=== PATIENT | female | born 1995 | race Caucasian/White ===

== ENCOUNTER 2019-03-06 23:10 | Emergency (ER) | payer MEDICAID ==
[~2019-03-06] VITALS: Ht 162.6 cm; Wt 90.9 kg
[2019-03-06 23:14] VITALS: Ht 162.6 cm; Wt 90.9 kg
[2019-03-06] MEDS ORDERED: PRENAVITE1 TAB PO (23:15)
[2019-03-06 23:44] LABS: HEMATOCRIT 34.6 % (36.0-48.0); HEMOGLOBIN 12.2 g/dL (12-16); LYMPHOCYTES 34.3 % (15-50); MCH 30.5 pg (26.0-34.0); MCHC 35.3 g/dL (31.0-37.0); MCV 86.5 fL (80.0-100.0); MEAN PLATELET VOLUME 11.1 fL (7.4-10.4); NEUTROPHILS 59.8 % (40-80); PLATELET COUNT 221 10x3/uL (130-400); RDW 12.8 % (11.5-14.5); WBC 12.9 10x3/uL (4.8-10.8)
[2019-03-06 23:46] LABS: CALC OSMOLALITY 274 mosm/kg (275-300); CALCIUM 9.2 mg/dL (8.5-10.1); CHLORIDE - SERUM 101 mmol/L (98-107); CREATININE - SERUM 0.7 mg/dL (0.6-1.3); GLUCOSE 86 mg/dL (74-106); POTASSIUM - SERUM 3.4 mmol/L (3.5-5.1); SODIUM 139 mmol/L (136-145); UREA NITROGEN 7 mg/dL (7-18); eGFR NON AFRICAN AMERICAN > 90 mL/min (90-120)
[2019-03-06 23:52] LABS: ALBUMIN 3.6 g/dL (3.4-5.0); ALKALINE PHOSPHATASE 53 U/L (46-116); ALT (SGPT) 41 U/L (10-68); BILIRUBIN - TOTAL 0.21 mg/dL (0.2-1.3); PROTEIN - SERUM 7.5 g/dL (6.4-8.2)
[2019-03-06 23:56] LABS: HCG SERUM POSITIVE (NEGATIVE)
[2019-03-06 23:56] LABS: APPEARANCE CLEAR (CLEAR); BILIRUBIN NEGATIVE (NEGATIVE); COLOR YELLOW (YELLOW); GLUCOSE NEGATIVE (NEGATIVE); KETONE NEGATIVE (NEGATIVE); NITRITE NEGATIVE (NEGATIVE); PROTEIN NEGATIVE (NEGATIVE); UROBILINOGEN NORMAL (NORMAL)
[2019-03-06 23:58] LABS: BACTERIA FEW /hpf (NEGATIVE); EPITHELIAL CELLS 0-5 /hpf (0-5); RED CELLS - URINE 0-5 /hpf (0-5); WHITE CELLS - URINE NSEEN /hpf (NEGATIVE)
[2019-03-07 00:25] LABS: HCG - QUANTITATIVE (MATERNAL) 83448 mIU/mL
[2019-03-07 02:51] VITALS: BP 107/70
== END 2019-03-07 02:51 | disposition home or self-care (01) ==
LOC: D.ER 23:10
PROVIDERS: Family Medicine
DX: O20.0 Threatened abortion (principal); Z3A.10 10 weeks gestation of pregnancy

== ENCOUNTER 2019-07-06 09:32 | Outpatient (CLI) | payer MEDICAID ==
[2019-03-06 23:14] VITALS: BMI 34.4
[~2019-07-06 09:32] MED LIST: PRENAVITE1 TAB PO
[2019-07-06 11:31] LABS: BASOPHILS 0.2 % (0-2); EOSINOPHILS 0.8 % (0-7); HEMOGLOBIN 11.6 g/dL (12-16); IMMATURE GRANULOCYTES 0.3 % (0-5); MCH 30.4 pg (26.0-34.0); MCHC 34.1 g/dL (31.0-37.0); MEAN PLATELET VOLUME 11.2 fL (7.4-10.4); MONOCYTES 6.6 % (2-11); NEUTROPHILS 63.1 % (40-80); RBC 3.82 10x6/uL (4.00-5.40); RDW 12.9 % (11.5-14.5); WBC 11.7 10x3/uL (4.8-10.8)
[2019-07-06 11:33] LABS: PLATELET COUNT 267 10x3/uL (130-400)
[2019-07-06 11:40] LABS: CALC OSMOLALITY 272 mosm/kg (275-300); CARBON DIOXIDE 23.4 mmol/L (21.0-32.0); CHLORIDE - SERUM 104 mmol/L (98-107); CREATININE - SERUM 0.6 mg/dL (0.6-1.3); GLUCOSE 89 mg/dL (74-106); POTASSIUM - SERUM 3.5 mmol/L (3.5-5.1); SODIUM 138 mmol/L (136-145); UREA NITROGEN 6 mg/dL (7-18); eGFR NON AFRICAN AMERICAN > 90 mL/min (90-120)
[2019-07-06 11:46] LABS: ALKALINE PHOSPHATASE 98 U/L (30-120); ALT (SGPT) 31 U/L (10-68); BILIRUBIN - DIRECT 0.11 mg/dL (0.00-0.30); BILIRUBIN - INDIRECT 0.06 mg/dL (0.00-1.00); BILIRUBIN - TOTAL 0.17 mg/dL (0.2-1.3); PROTEIN - SERUM 7.6 g/dL (6.4-8.2); URIC ACID 3.4 mg/dL (2.6-7.2)
[2019-07-06 12:05] LABS: BACTERIA MODERATE /hpf (NEGATIVE); BILIRUBIN NEGATIVE (NEGATIVE); GLUCOSE NEGATIVE (NEGATIVE); KETONE NEGATIVE (NEGATIVE); NITRITE NEGATIVE (NEGATIVE); RED CELLS - URINE NONE SEEN /hpf (0-5); UROBILINOGEN NORMAL (NORMAL); WHITE CELLS - URINE OCC /hpf (NEGATIVE)
[2019-07-08 12:12] LABS: PROTEIN - URINE 10.9 mg/dL (0.0-11.9)
== END 2019-07-06 12:23 | disposition home or self-care (01) ==
LOC: D.LDO 09:32
PROVIDERS: ATTEND Student in an Organized Health Care Education/Training Program
DX: O16.9 Unspecified maternal hypertension, unspecified trimester (principal)

== ENCOUNTER 2019-08-07 11:07 | Outpatient (CLI) | payer MEDICAID ==
[2019-03-06 23:14] VITALS: BMI 34.4
== END 2019-08-07 14:57 | disposition home or self-care (01) ==
LOC: D.LDO 11:07
PROVIDERS: ATTEND Student in an Organized Health Care Education/Training Program
DX: O26.893 Other specified pregnancy related conditions, third trimester (principal); Z3A.31 31 weeks gestation of pregnancy

== ENCOUNTER 2019-08-10 12:25 | Outpatient (CLI) | payer MEDICAID ==
[2019-03-06 23:14] VITALS: BMI 34.4
== END 2019-08-10 13:52 | disposition home or self-care (01) ==
LOC: D.LDO 12:25
PROVIDERS: ATTEND Student in an Organized Health Care Education/Training Program
DX: O24.419 Gestational diabetes mellitus in pregnancy, unspecified control (principal); Z3A.32 32 weeks gestation of pregnancy

== ENCOUNTER 2019-08-14 09:45 | Outpatient (CLI) | payer MEDICAID ==
[2019-03-06 23:14] VITALS: BMI 34.4
== END 2019-08-14 11:03 | disposition home or self-care (01) ==
LOC: D.LDO 09:45
PROVIDERS: ATTEND Student in an Organized Health Care Education/Training Program
DX: O24.419 Gestational diabetes mellitus in pregnancy, unspecified control (principal); Z3A.32 32 weeks gestation of pregnancy

== ENCOUNTER 2019-08-17 11:13 | Outpatient (CLI) | payer MEDICAID ==
[2019-03-06 23:14] VITALS: BMI 34.4
== END 2019-08-17 13:20 | disposition home or self-care (01) ==
LOC: D.LDO 11:13
PROVIDERS: ATTEND Student in an Organized Health Care Education/Training Program
DX: O24.419 Gestational diabetes mellitus in pregnancy, unspecified control (principal); Z3A.33 33 weeks gestation of pregnancy

== ENCOUNTER 2019-08-21 10:24 | Outpatient (CLI) | payer MEDICAID ==
[2019-03-06 23:14] VITALS: BMI 34.4
== END 2019-08-21 12:05 | disposition home or self-care (01) ==
LOC: D.LDO 10:24
PROVIDERS: ATTEND Student in an Organized Health Care Education/Training Program
DX: O24.419 Gestational diabetes mellitus in pregnancy, unspecified control (principal); Z3A.33 33 weeks gestation of pregnancy

== ENCOUNTER 2019-08-24 12:47 | Outpatient (CLI) | payer MEDICAID ==
[2019-03-06 23:14] VITALS: BMI 34.4
== END 2019-08-24 14:25 | disposition home or self-care (01) ==
LOC: D.LDO 12:47
PROVIDERS: ATTEND Student in an Organized Health Care Education/Training Program
DX: O24.419 Gestational diabetes mellitus in pregnancy, unspecified control (principal); Z3A.34 34 weeks gestation of pregnancy

== ENCOUNTER 2019-08-28 09:53 | Outpatient (CLI) | payer MEDICAID ==
[2019-03-06 23:14] VITALS: BMI 34.4
== END 2019-08-28 10:32 | disposition home or self-care (01) ==
LOC: D.LDO 09:53
PROVIDERS: ATTEND Student in an Organized Health Care Education/Training Program
DX: O24.419 Gestational diabetes mellitus in pregnancy, unspecified control (principal); Z3A.34 34 weeks gestation of pregnancy

== ENCOUNTER 2019-08-31 10:10 | Outpatient (CLI) | payer MEDICAID ==
[2019-03-06 23:14] VITALS: BMI 34.4
== END 2019-08-31 11:19 | disposition home or self-care (01) ==
LOC: D.LDO 10:10
PROVIDERS: ATTEND Student in an Organized Health Care Education/Training Program
DX: O24.419 Gestational diabetes mellitus in pregnancy, unspecified control (principal); Z3A.35 35 weeks gestation of pregnancy

== ENCOUNTER 2019-09-04 10:40 | Outpatient (CLI) | payer MEDICAID ==
[2019-03-06 23:14] VITALS: BMI 34.4
== END 2019-09-04 12:00 | disposition home or self-care (01) ==
LOC: D.LDO 10:40
PROVIDERS: ATTEND Student in an Organized Health Care Education/Training Program
DX: O24.419 Gestational diabetes mellitus in pregnancy, unspecified control (principal); Z3A.35 35 weeks gestation of pregnancy

== ENCOUNTER → 2019-09-11 10:45 | Outpatient (CLI) | payer MEDICAID ==
[2019-03-06 23:14] VITALS: BMI 34.4
== END | disposition home or self-care (01) ==
LOC: D.LDO 10:45
PROVIDERS: ATTEND Student in an Organized Health Care Education/Training Program
DX: O24.419 Gestational diabetes mellitus in pregnancy, unspecified control (principal); Z3A.36 36 weeks gestation of pregnancy

== ENCOUNTER 2019-09-14 12:51 | Outpatient (CLI) | payer MEDICAID ==
[2019-03-06 23:14] VITALS: BMI 34.4
== END 2019-09-14 14:53 | disposition home or self-care (01) ==
LOC: D.LDO 12:51
PROVIDERS: ATTEND Student in an Organized Health Care Education/Training Program
DX: O24.419 Gestational diabetes mellitus in pregnancy, unspecified control (principal); Z3A.37 37 weeks gestation of pregnancy

== ENCOUNTER 2019-09-18 09:48 | Outpatient (CLI) | payer MEDICAID ==
[2019-03-06 23:14] VITALS: BMI 34.4
== END 2019-09-18 10:44 | disposition home or self-care (01) ==
LOC: D.LDO 09:48
PROVIDERS: ATTEND Student in an Organized Health Care Education/Training Program
DX: O24.119 Pre-existing type 2 diabetes mellitus, in pregnancy, unspecified trimester (principal); Z3A.37 37 weeks gestation of pregnancy

== ENCOUNTER 2019-09-21 13:08 | Outpatient (CLI) | payer MEDICAID ==
[2019-03-06 23:14] VITALS: BMI 34.4
[2019-09-21 14:45] LABS: CALC OSMOLALITY 262 mosm/kg (275-300); CALCIUM 9.1 mg/dL (8.5-10.1); CARBON DIOXIDE 26.2 mmol/L (21.0-32.0); CHLORIDE - SERUM 102 mmol/L (98-107); CREATININE - SERUM 0.7 mg/dL (0.6-1.3); GLUCOSE 86 mg/dL (74-106); POTASSIUM - SERUM 3.6 mmol/L (3.5-5.1); SODIUM 133 mmol/L (136-145); UREA NITROGEN 8 mg/dL (7-18); eGFR NON AFRICAN AMERICAN > 90 mL/min (90-120)
[2019-09-21 14:48] LABS: BASOPHILS 0.2 % (0-2); EOSINOPHILS 0.7 % (0-7); HEMATOCRIT 32.9 % (36.0-48.0); HEMOGLOBIN 10.7 g/dL (12-16); IMMATURE GRANULOCYTES 0.2 % (0-5); LYMPHOCYTES 29.6 % (15-50); MCH 28.8 pg (26.0-34.0); MCHC 32.5 g/dL (31.0-37.0); MCV 88.7 fL (80.0-100.0); MEAN PLATELET VOLUME 11.6 fL (7.4-10.4); MONOCYTES 5.3 % (2-11); PLATELET COUNT 243 10x3/uL (130-400); RBC 3.71 10x6/uL (4.00-5.40); RDW 13.1 % (11.5-14.5); WBC 11.2 10x3/uL (4.8-10.8)
[2019-09-21 14:51] LABS: ALBUMIN 2.5 g/dL (3.4-5.0); ALKALINE PHOSPHATASE 125 U/L (30-120); ALT (SGPT) 16 U/L (10-68); BILIRUBIN - DIRECT 0.08 mg/dL (0.00-0.30); BILIRUBIN - INDIRECT 0.09 mg/dL (0.00-1.00); BILIRUBIN - TOTAL 0.17 mg/dL (0.2-1.3); PROTEIN - SERUM 6.2 g/dL (6.4-8.2); URIC ACID 4.9 mg/dL (2.6-7.2)
[2019-09-21 15:20] LABS: BILIRUBIN NEGATIVE (NEGATIVE); GLUCOSE NEGATIVE (NEGATIVE); KETONE NEGATIVE (NEGATIVE); NITRITE NEGATIVE (NEGATIVE); SPECIFIC GRAVITY 1.005 (1.005-1.020); UROBILINOGEN NORMAL (NORMAL)
== END 2019-09-21 16:40 | disposition home or self-care (01) ==
LOC: D.LDO 13:08
PROVIDERS: ATTEND Student in an Organized Health Care Education/Training Program
DX: O24.419 Gestational diabetes mellitus in pregnancy, unspecified control (principal); Z3A.38 38 weeks gestation of pregnancy

== ENCOUNTER 2019-09-25 10:10 | Outpatient (CLI) | payer MEDICAID ==
[2019-03-06 23:14] VITALS: BMI 34.4
[2019-09-26] MEDS ORDERED: GLUCOPHAGE1000 MG PO (21:00)
[2019-09-26] MEDS ORDERED: GLUCOPHAGE500 MG PO (21:00)
[2019-09-26 21:03] VITALS: BMI 39.5
== END 2019-09-25 12:00 | disposition home or self-care (01) ==
LOC: D.LDO 10:10
PROVIDERS: ATTEND Obstetrics & Gynecology
DX: O24.913 Unspecified diabetes mellitus in pregnancy, third trimester (principal); Z3A.38 38 weeks gestation of pregnancy

== ENCOUNTER 2019-09-26 20:18 | Inpatient (IN) | payer MEDICAID ==
[~2019-09-26] VITALS: Ht 162.6 cm; Wt 104.3 kg
[2019-09-26] MEDS ORDERED: GLUCOPHAGE500 MG PO (21:00)
[2019-09-26] MEDS ORDERED: GLUCOPHAGE1000 MG PO (21:00)
[2019-09-26 21:03] VITALS: BP 137/88; Ht 162.6 cm; Wt 104.3 kg
[2019-09-26 21:43] LABS: HEMATOCRIT 33.9 % (36.0-48.0); MCH 28.6 pg (26.0-34.0); MCHC 32.4 g/dL (31.0-37.0); MCV 88.3 fL (80.0-100.0); MEAN PLATELET VOLUME 12.5 fL (7.4-10.4); RBC 3.84 10x6/uL (4.00-5.40); RDW 13.2 % (11.5-14.5); WBC 12.2 10x3/uL (4.8-10.8)
[2019-09-26 21:58] LABS: UDS - AMPHET NEGATIVE QUAL (NEGATIVE); UDS - BARB NEGATIVE QUAL (NEGATIVE); UDS - BENZO NEGATIVE QUAL (NEGATIVE); UDS - COCAINE NEGATIVE QUAL (NEGATIVE); UDS - OPIATE NEGATIVE QUAL (NEGATIVE); UDS - PCP NEGATIVE QUAL (NEGATIVE); UDS - THC POSITIVE QUAL (NEGATIVE)
--- NOTE | 2019-09-27 08:54 | MORECARE ---
CASE MANAGEMENT DISCHARGE SUMMARY PATIENT: MIGUELITO RINALDI UNIT: [id number] ADM DATE: 09/26/19 AGE: 23 : [birth year] SEX: F ROOM/BED: D.1277 AUTHOR: THERESE ROTHMAN PHYSICIAN: REFERRING PHYSICIAN: FAUZIA MISTRY DO DATE OF SERVICE: 09/27/19 Discharge Plan Patient Name: MIGUELITO RINALDI Facility: [facility]:[place] : 1995 Planned Disposition: Home Anticipated Discharge Date: Discharge Date: Expected LOS: Initial Reviewer: [email or web address] Initial Review Date: 09/26/2019 Generated: 09/27/19 9:54 am Patient Name: MIGUELITO RINALDI Page [id number] at 0854 All edits/amendments must be made on the electronic document DICTATION DATE: 09/27/19 0854 DESKTOP ARCHITECT: SLOAN 09/27/19 0854 RPT#: [id number] DC DATE: STATUS: ADM IN [facility] [address] [place] [address] END OF REPORT
[2019-09-28 06:09] LABS: RAPID PLASMA REAGIN Non Reactive (Non Reactive)
[2019-09-28 20:25] LABS: BASOPHILS 0.1 % (0-2); EOSINOPHILS 0.2 % (0-7); IMMATURE GRANULOCYTES 0.2 % (0-5); LYMPHOCYTES 10.8 % (15-50); MCH 28.7 pg (26.0-34.0); MCV 89.5 fL (80.0-100.0); MEAN PLATELET VOLUME 11.7 fL (7.4-10.4); NEUTROPHILS 80.7 % (40-80); RDW 13.3 % (11.5-14.5)
[2019-09-28 20:28] LABS: HEMATOCRIT 25.6 % (36.0-48.0); HEMOGLOBIN 8.2 g/dL (12-16); PLATELET COUNT 185 10x3/uL (130-400); RBC 2.86 10x6/uL (4.00-5.40); WBC 19.3 10x3/uL (4.8-10.8)
[2019-09-28 20:56] LABS: ALBUMIN 1.7 g/dL (3.4-5.0); ALKALINE PHOSPHATASE 86 U/L (30-120); ALT (SGPT) 13 U/L (10-68); BILIRUBIN - TOTAL 0.39 mg/dL (0.2-1.3); CALC OSMOLALITY 271 mosm/kg (275-300); CALCIUM 7.3 mg/dL (8.5-10.1); CARBON DIOXIDE 17.3 mmol/L (21.0-32.0); CHLORIDE - SERUM 107 mmol/L (98-107); CREATININE - SERUM 0.9 mg/dL (0.6-1.3); POTASSIUM - SERUM 3.3 mmol/L (3.5-5.1); PROTEIN - SERUM 4.4 g/dL (6.4-8.2); SODIUM 135 mmol/L (136-145); UREA NITROGEN 7 mg/dL (7-18); eGFR NON AFRICAN AMERICAN 83 mL/min (90-120)
[2019-09-28 20:57] LABS: GLUCOSE 174 mg/dL (74-106)
[2019-09-28 21:55] LABS: HEMATOCRIT 27.6 % (36.0-48.0); HEMOGLOBIN 9.1 g/dL (12-16); MCH 29.1 pg (26.0-34.0); MCV 88.2 fL (80.0-100.0); MEAN PLATELET VOLUME 11.9 fL (7.4-10.4); RBC 3.13 10x6/uL (4.00-5.40); RDW 13.2 % (11.5-14.5); WBC 16.1 10x3/uL (4.8-10.8)
[2019-09-28 22:42] LABS: INR 1.05 (0.85-1.17); PROTIME 13.7 SECONDS (11.6-15.0)
[2019-09-28 22:48] LABS: D-DIMER-QUANTITATIVE 2.4 ug/mLFEU (0.20-0.54)
[2019-09-29 06:06] LABS: BASOPHILS 0 % (0-2); EOSINOPHILS 0 % (0-7); HEMATOCRIT 29.7 % (36.0-48.0); HEMOGLOBIN 10.1 g/dL (12-16); IMMATURE GRANULOCYTES 0.4 % (0-5); LYMPHOCYTES 5.8 % (15-50); MCH 29.7 pg (26.0-34.0); MCV 87.4 fL (80.0-100.0); MEAN PLATELET VOLUME 12.4 fL (7.4-10.4); MONOCYTES 1.3 % (2-11); NEUTROPHILS 92.5 % (40-80); PLATELET COUNT 216 10x3/uL (130-400); RDW 13.4 % (11.5-14.5); WBC 19.7 10x3/uL (4.8-10.8)
--- NOTE | 2019-09-29 07:45 | NUR ---
CALLED TO ROOM, PT QUESTIONS IF HER MOTHER IS ALLOWED TO COME STAY WITH HER. NO VISITOR PRESENT AT THIS TIME. REASSURED HER THAT YES HER MOTHER IS WELCOME.
--- NOTE | 2019-09-29 08:30 | NUR ---
AM ASSESSMENT COMPLETED CHARTED. FUNDUS FIRM AT U/U WITH LIGHT BLEEDING NOTED AND NO CLOTS WITH MASSAGE. MAYORGA CATH TO BEDSIDE DRAIN WITH 300ML CLEAR URINE NOTED. SALINE LOCK #1 TO RIGHT FOREARM, #2 LOCATED IN LEFT HAND BOTH ARE PATENT AND FLUSHED EASILY WITH 5ML NS. SHE RATES HER PAIN AT 2/10 AND STATES UNDERSTANDING THAT PAIN MED IS AVAILABLE AND IF NEEDED TO CALL NURSE. INFANT BROUGHT TO ROOM BY CRIB PER PT REQUEST. SIDE RAILS UP X 2 WITH CALL LIGHT IN REACH.
--- NOTE | 2019-09-29 09:15 | NUR ---
PAIN MED GIVEN SCANNED TO EMAR. PT RATES PAIN AT 5/10, WILL WAIT TO REMOVE MAYORGA UNTIL PAIN MED HAS BEEN GIVEN TIME TO DECREASE HER PAIN. INFANT IN ROOM BEING HELD BY PT MOTHER. CALL LIGHT IN REACH.
--- NOTE | 2019-09-29 10:40 | NUR ---
RATES PAIN AT 0/10 AT THIS TIME, MAYORGA CATH REMOVED INTACT WITH 1200ML TOTAL OUTPUT NOTED. PT ABLE TO MOVE SELF TO SITTING UP ON SIDE OF BED AND DENIES DIZZINESS OR NAUSEA AMB TO BATHROOM AND ABLE TO VOID WITHOUT COMPLAINT. KARSON CARE GONE OVER AND PT DEMONSTRATES HER UNDERSTANDING. MESH BRIEFS AND KARSON PADS ON WITH GOWN CHANGED. DENIES NEEDS AT THIS TIME. INFANT IN CRIB AT BEDSIDE AND PT MOTHER IS ALSO PRESENT.
--- NOTE | 2019-09-29 11:59 | MORECARE ---
CASE MANAGEMENT DISCHARGE SUMMARY PATIENT: MIGUELITO RINALDI UNIT: [id number] ADM DATE: 09/26/19 AGE: 23 : [birth year] SEX: F ROOM/BED: D.1277 AUTHOR: THERESE ROTHMAN PHYSICIAN: REFERRING PHYSICIAN: FAUZIA MISTRY DO DATE OF SERVICE: 09/29/19 Discharge Plan Patient Name: MIGUELITO RINALDI Facility: [facility]:[place] : 1995 Planned Disposition: Home Anticipated Discharge Date: 09/30/19 Discharge Date: Expected LOS: 4 Initial Reviewer: [email or web address] Initial Review Date: 09/26/2019 Generated: 09/29/19 12:58 pm Last DP export: 09/27/19 7:54 a Patient Name: MIGUELITO RINALDI Page [phone] at 1159 All edits/amendments must be made on the electronic document DICTATION DATE: 09/29/19 1158 BATTERY TESTER FIELD: SLOAN 09/29/19 1158 RPT#: [id number] DC DATE: STATUS: ADM IN [facility] [address] [place] [address] END OF REPORT
[2019-09-29 12:00] VITALS: BP 138/83
--- NOTE | 2019-09-29 12:00 | NUR ---
NURSERY NOTIFIED REQUESTED BY PATIENT. SHE CONTINUES TO RATE HER PAIN AT 0/10
[2019-09-29 13:22] LABS: HEMATOCRIT 27.6 % (36.0-48.0); HEMOGLOBIN 9.1 g/dL (12-16); MCH 28.4 pg (26.0-34.0); MCV 86.3 fL (80.0-100.0); MEAN PLATELET VOLUME 11.9 fL (7.4-10.4); PLATELET COUNT 219 10x3/uL (130-400); RDW 13.3 % (11.5-14.5); WBC 23.2 10x3/uL (4.8-10.8)
--- NOTE | 2019-09-29 14:15 | NUR ---
CBC RESULTS FROM [address] MISTRY. ORDERS REC'D TO REPEAT CBC IN AM.
[2019-09-29 14:19] LABS: EOSINOPHILS 1 % (0-7); LYMPHOCYTES 13 % (15-50); MONOCYTES 9 % (2-11); NEUTROPHILS 77 % (40-80); PLATELET ESTIMATE NORMAL
--- NOTE | 2019-09-29 14:30 | NUR ---
OK PER DR MISTRY THAT ONE OF THE 2 SALINE LOCKS COULD BE REMOVED. PT REQUEST THAT SALINE LOCK FROM RIGHT AC BE TAKEN OUT. THIS IS COMPLETED BY THIS RN, IV CATH IS NOTED TO BE INTACT, NO REDDNESS OR SWELLING AT SITE. SMALL CUP OF ICE PROVIDED PER REQUEST WITH MELLISA. DENIES PAIN OR OTHER NEEDS AT THIS TIME.
--- NOTE | 2019-09-29 15:30 | NUR ---
PT AMB IN HALLS WITH HER MOTHER. DENIES PAIN AND HAS NO NEEDS AT THIS TIME.
--- NOTE | 2019-09-29 16:02 | NUR ---
DIETARY CALLED REQUESTED FOR ADDITIONAL SPRITES. RATES PAIN AT 0/10, INFANT IN CRIB AT BEDSIDE.
--- NOTE | 2019-09-29 18:00 | NUR ---
PAIN MED GIVEN SCANNED TO EMAR. PT RATES PAIN AT 6/10. NURSERY CALLED TO ROOM TO ASSIST PT WITH . CALL LIGHT IN REACH.
--- NOTE | 2019-09-29 18:46 | NUR ---
PAIN REASSESSMENT, SHE RATES PAIN AT 0/10. IN CRIB AT BEDISDE AND CALL LIGHT IS WITHIN REACH.
[2019-09-29 20:30] VITALS: BP 144/79
--- NOTE | 2019-09-29 20:30 | NUR ---
PATIENT SITTING UP IN BED HOLDING INFANT. SHIFT ASSESSMENT COMPLETED, SEE FLOWSHEET. PATIENT DENIES PAIN OR NEEDS AT THIS TIME. WILL CONTINUE TO MONITOR.
--- NOTE | 2019-09-29 21:20 | NUR ---
PATIENT WALKING AROUND ROOM, DENIES PAIN OR NEEDS AT THIS TIME. WILL CONTINUE TO MONITOR.
[2019-09-29 23:49] VITALS: BP 128/82
--- NOTE | 2019-09-29 23:49 | NUR ---
PATIENT SITTING UP IN BED HOLDING INFANT. VITAL SIGNS TAKEN AND ICE PROVIDED PER PT REQUEST. NO FURTHER NEEDS IDENTIFIED. DENIES PAIN.
--- NOTE | 2019-09-30 02:59 | NUR ---
PATIENT SLEEPING WITH NO DISTRESS NOTED. RESPIRATIONS EVEN AND NON LABORED. WILL CONTINUE TO MONITOR
--- NOTE | 2019-09-30 04:16 | NUR ---
PATIENT SLEEPING WITH EVEN RESPIRATIONS, NO DISTRESS NOTED. WILL CONTINUE TO MONITOR
--- NOTE | 2019-09-30 06:24 | NUR ---
INFANT TO ROOM VIA OPEN CRIB. ID BANDS VERIFIED. PATIENT DENIES PAIN OR NEEDS AT THIS TIME. ENCOURAGED TO CALL IF SHE DOES, PT VERBALIZES UNDERSTANDING. WILL CONTINUE TO MONITOR.
[2019-09-30 07:10] LABS: BASOPHILS 0.3 % (0-2); EOSINOPHILS 0.9 % (0-7); HEMOGLOBIN 8.9 g/dL (12-16); IMMATURE GRANULOCYTES 0.4 % (0-5); LYMPHOCYTES 33.6 % (15-50); MCH 28.6 pg (26.0-34.0); MCV 86.8 fL (80.0-100.0); MEAN PLATELET VOLUME 11.3 fL (7.4-10.4); MONOCYTES 5.7 % (2-11); NEUTROPHILS 59.1 % (40-80); PLATELET COUNT 212 10x3/uL (130-400); RBC 3.11 10x6/uL (4.00-5.40); RDW 13.7 % (11.5-14.5); WBC 18.3 10x3/uL (4.8-10.8)
[2019-09-30 07:42] VITALS: BP 129/72
--- NOTE | 2019-09-30 07:42 | NUR ---
AM ASSESSMENT COMPLETED, SKIN WARM AND DRY, PT AAOX4, SITTING UPRIGHT IN BED EATING BREAKFAST ON ENTRY TO ROOM, INFANT IN PT ARMS-NAD. RESP EVEN AND UNLABORED, LUNGS CTAB, HEART RRR, ABD SOFT AND NONTENDER, DENIES PAIN, REPORTS +FLATUS, NO BM YET, PERINEUM WITH MILD EDEMA, VOIDING WITHOUT DIFFICULTY, FUNDUS FIRM AT U/2 AND MIDLINE, LOCHIA REPORTED LIGHT TO MODERATE WITH NO CLOTS, BUENROSTRO FREELY, NEGATIVE MILO'S SIGN B LE. REVIEWED POC TODAY, QUESTIONS ANSWERED. PT REPORTS DESIRE TO STOP , DISCUSSED BENEFITS OF WITH PT, OFFERING SUPPORT. PT STATES DESIRE TO BOTTLE FEED INFANT WHEN GOING HOME, WILL RELAY TO NURSERY STAFF FOR FOLLOW-UP. NO NEEDS VOICED AT THIS TIME, CALL LIGHT IN EASY REACH, BED IN LOW POSITION, BED BRAKES LOCKED, SIDE RAILS UP X2. WILL MONITOR FOR CHANGE IN STATUS.
--- NOTE | 2019-09-30 08:20 | NUR ---
ROUNDS COMPLETED, PT CONSUMED 100% BREAKFAST TRAY PROVIDED, TOLERATING PO INTAKE, DENIES NEEDS OR CONCERNS ON ROUNDS, INFANT IN ARMS. NAD NOTED. WILL CONTINUE TO MONITOR.
--- NOTE | 2019-09-30 09:45 | NUR ---
ROUNDS COMPLETED, PT LYING ON LEFT LATERAL POSITION WITH INFANT IN HER ARMS, RESP EVEN AND UNLABORED, DENIES NEEDS/CONCERNS/PAIN ON INQUIRY, WILL CONTINUE TO MONITOR.
--- NOTE | 2019-09-30 10:50 | NUR ---
rounds completed, lying in bed with eyes closed, lights dimmed in room. nad noted. will monitor.
--- NOTE | 2019-09-30 11:25 | NUR ---
ROUNDS COMPLETED, NAD NOTED, RESP EVEN AND UNLABORED, DENIES PAIN OR OTHER NEEDS AT PRESENT. WILL MONITOR. CALL LIGHT IN EASY REACH BED IN LOW POSITION, BED BRAKES LOCKED, SR UP X2.
--- NOTE | 2019-09-30 12:15 | NUR ---
LUNCH TRAY DELIVERED TO PT PER DIETARY. NAD NOTED, DENIES NEEDS AT PRESENT.
--- NOTE | 2019-09-30 12:53 | NUR ---
PT USING CALL LIGHT TO REQUEST PRN PAIN MED FOR ABDOMINAL CRAMPING "LIKE MENSTRUAL CRAMPS" RATES 5 OR 6 OUT OF 10 0N NUMERIC SCALE, PRN MED PROVIDED WITH CUP OF ICE WATER. PT ALSO REQUESTING SALINE LOCK BE REMOVED, SALINE LOCK DISCONTINUED, CATHETER TIP INTACT, SHOWN TO PATIENT, GAUZE AND CLEAR TAPE DRESSING APPLIED TO SITE, TOLERATES PROCEDURE WELL. NO OTHER NEEDS VOICED AT PRESENT. WILL MONITOR FOR CHANGE IN CONDITION.
--- NOTE | 2019-09-30 13:30 | NUR ---
pain reassessment completed, pt denies pain, ibuprofen effective for relief of pain. nad noted, resp even and unlabored, pt smiling. call light in easy reach of pt, denies other needs. will monitor.
--- NOTE | 2019-09-30 14:35 | NUR ---
pt resting with eyes closed in bed left lateral position, bed brakes locked, side rails up x2, bed in low position. resp even and unlabored. will monitor.
--- NOTE | 2019-09-30 15:45 | NUR ---
rounds completed, pt lying left lateral position, appears to be sleeping, infant in nursery with staff. nad noted, will monitor.
--- NOTE | 2019-09-30 17:37 | NUR ---
REVIEWED DISCHARGE INSTRUCTIONS WITH PT AFTER ADMINISTRATION OF MMR AND TDAP VACCINE, HANDOUTS PROVIDED PER FACILITY POLICY, QUESTIONS ANSWERED, PT STATES UNDERSTANDING OF ALL INFORMATION RELAYED. ENCOURAGED TO USE CALL LIGHT WITH FURTHER QUESTIONS IF ARISE. WILL MONITOR.
--- NOTE | 2019-09-30 18:55 | NUR ---
PT DISCHARGED TO HOME WITH SECURED IN CARSEAT AND WITH ALL PERSONAL BELONGINGS TO PRIVATE AUTO IN CARE OF SIGNIFICANT OTHER AND PT MOTHER. STABLE CONDITION.
--- NOTE | 2019-10-02 08:47 | MORECARE ---
CASE MANAGEMENT DISCHARGE SUMMARY PATIENT: MIGUELITO RINALDI UNIT: [id number] ADM DATE: 09/26/19 AGE: 23 : [birth year] SEX: F ROOM/BED: D.1277 AUTHOR: THERESE ROTHMAN PHYSICIAN: REFERRING PHYSICIAN: FAUZIA MISTRY DO DATE OF SERVICE: 10/02/19 Discharge Plan Patient Name: MIGUELITO RINALDI Facility: [facility]:[place] : 1995 Planned Disposition: Home Anticipated Discharge Date: 09/30/19 Discharge Date: 09/30/2019 Expected LOS: 4 Initial Reviewer: [email or web address] Initial Review Date: 09/26/2019 Generated: 10/02/19 9:46 am Last DP export: 09/29/19 10:59 a Patient Name: MIGUELITO RINALDI Page [id number] at 0847 All edits/amendments must be made on the electronic document DICTATION DATE: 10/02/19845 WATCH GUARD GATE: DM 10/02/1945 RPT#: [id number] DC DATE:09/30/19 STATUS: DIS IN [facility] [address] [place] [address] END OF REPORT
== END 2019-09-30 18:10 | disposition home or self-care (01) | DRG 807 ==
LOC: D.LD 20:18
PROVIDERS: Obstetrics & Gynecology; ADMIT Student in an Organized Health Care Education/Training Program; ATTEND Student in an Organized Health Care Education/Training Program
PROC: 10E0XZZ Delivery of Products of Conception, External Approach (ICD-10-PCS; principal; 2019-09-28)
PROC: 0UQMXZZ Repair Vulva, External Approach (ICD-10-PCS; 2019-09-28)
DX: O99.824 Streptococcus B carrier state complicating childbirth (principal); Z37.0 Single live birth; Z3A.39 39 weeks gestation of pregnancy; O24.429 Gestational diabetes mellitus in childbirth, unspecified control; O71.82 Other specified trauma to perineum and vulva; E86.1 Hypovolemia; O90.89 Other complications of the puerperium, not elsewhere classified

== ENCOUNTER 2019-10-05 20:33 | Observation (INO) | payer MEDICAID ==
[2019-09-26 21:03] VITALS: BMI 39.5
[~2019-10-05 20:33] MED LIST changes: +GLUCOPHAGE1000 MG PO; +GLUCOPHAGE500 MG PO
== END 2019-10-06 15:26 | disposition home or self-care (01) ==
LOC: D.LDO 20:33 → D.LD 20:33 → OBSVTIME 21:00 → D.LD 10-06 15:26
PROVIDERS: ADMIT Student in an Organized Health Care Education/Training Program; ATTEND Student in an Organized Health Care Education/Training Program
DX: O90.89 Other complications of the puerperium, not elsewhere classified (principal); G89.18 Other acute postprocedural pain

== ENCOUNTER 2019-10-10 09:30 | Emergency (ER) | payer MEDICAID ==
[~2019-10-10] VITALS: Ht 162.6 cm; Wt 86.4 kg
[2019-10-10 09:40] VITALS: Ht 162.6 cm; Wt 86.4 kg
[2019-10-10 10:24] LABS: CALC OSMOLALITY 274 mosm/kg (275-300); CALCIUM 8.9 mg/dL (8.5-10.1); CARBON DIOXIDE 25.1 mmol/L (21.0-32.0); CHLORIDE - SERUM 102 mmol/L (98-107); CREATININE - SERUM 1.2 mg/dL (0.6-1.3); POTASSIUM - SERUM 3.6 mmol/L (3.5-5.1); SODIUM 137 mmol/L (136-145); UREA NITROGEN 13 mg/dL (7-18); eGFR NON AFRICAN AMERICAN 59 mL/min (90-120)
[2019-10-10 10:25] LABS: APTT 34.7 SECONDS (22.8-39.4); INR 1.01 (0.85-1.17); PROTIME 13.2 SECONDS (11.6-15.0)
[2019-10-10 10:27] LABS: GLUCOSE 116 mg/dL (74-106)
[2019-10-10 10:35] LABS: BASOPHILS 0.4 % (0-2); EOSINOPHILS 0.5 % (0-7); HEMATOCRIT 35.8 % (36.0-48.0); HEMOGLOBIN 11.6 g/dL (12-16); IMMATURE GRANULOCYTES 0.2 % (0-5); MCH 28.6 pg (26.0-34.0); MCHC 32.4 g/dL (31.0-37.0); MCV 88.4 fL (80.0-100.0); MEAN PLATELET VOLUME 10.5 fL (7.4-10.4); MONOCYTES 6.3 % (2-11); NEUTROPHILS 76.6 % (40-80); RBC 4.05 10x6/uL (4.00-5.40); RDW 13.4 % (11.5-14.5); WBC 13.2 10x3/uL (4.8-10.8)
[2019-10-10 10:38] LABS: PLATELET COUNT 318 10x3/uL (130-400)
[2019-10-10 10:42] LABS: ALBUMIN 3.5 g/dL (3.4-5.0); ALKALINE PHOSPHATASE 126 U/L (30-120); ALT (SGPT) 24 U/L (10-68); BILIRUBIN - TOTAL 0.29 mg/dL (0.2-1.3); CKMB 0.4 U/L (0.0-3.6); CREATINE KINASE 58 UL (21-215); TROPONIN-I < 0.017 ng/mL (0.000-0.060)
[2019-10-10 11:22] LABS: BILIRUBIN NEGATIVE (NEGATIVE); GLUCOSE NEGATIVE (NEGATIVE); KETONE NEGATIVE (NEGATIVE); NITRITE NEGATIVE (NEGATIVE); SPECIFIC GRAVITY 1.015 (1.005-1.020); UROBILINOGEN NORMAL (NORMAL)
[2019-10-10 11:23] LABS: BACTERIA MODERATE /hpf (NEGATIVE); EPITHELIAL CELLS OCC /hpf (0-5); RED CELLS - URINE >50 /hpf (0-5); WHITE CELLS - URINE 25-50 /hpf (NEGATIVE)
[2019-10-10] MEDS ORDERED: VOLTAREN75 MG PO (12:33)
[2019-10-10] MEDS ORDERED: KEFLEX500 MG PO (12:33)
[2019-10-10 14:00] VITALS: BP 121/78
== END 2019-10-10 14:02 | disposition home or self-care (01) ==
LOC: D.ER 09:30
PROVIDERS: Family Medicine
DX: O86.20 Urinary tract infection following delivery, unspecified (principal); R10.30 Lower abdominal pain, unspecified; R10.2 Pelvic and perineal pain